=== PATIENT | female | born 1965 | race Caucasian/White ===

== ENCOUNTER 2017-11-04 04:47 | Inpatient (IN) | payer SELFPAY ==
[2017-11-04] MEDS ORDERED: METHYLPREDNISOLONE INJ 125 MG/2 ML SDV IV ONE (05:03)
[2017-11-04] MEDS ORDERED: IPRATROPIUM/ALBUTEROL 0.5-2.5 MG/3 ML AMPUL NEB ONE (05:03)
--- NOTE | 2017-11-04 05:03 | ER Document Report ---
Doctor's Note Notes: 11/04/17 05:02 I performed a quick triage evaluation the patient. Patient is a pleasant 52- year-old female presents with complaints of difficulty breathing and coughing. Symptoms have been ongoing for around 3 days. Her grandson was also sick with coughing illness and she feels that maybe she got this from him. No subjective fevers at home. She is a smoker. She says that she thinks she has COPD but has never been diagnosed and does not follow with a doctor does not take medications. No chest pain. No abdominal pain. No vomiting. She has a mild headache. She has recurrent cough that is mildly productive. On exam she does have very diminished air movement. She is mildly tachypneic. She is able to speak in full sentences. I have ordered breathing treatments, magnesium, Solu- Medrol, chest x-ray, and lab work. Patient is placed on athletic monitor.
[2017-11-04] MEDS: MAGNESIUM SULFATE/D5W 1 GM/100 ML RTUPB IV SCH ×2 (05:23→06:05)
[2017-11-04 05:37] LABS: VENOUS BLOOD BASE EXCESS 0.5 mmol/L; VENOUS BLOOD HCO3 24.1 mmol/L (20-32); VENOUS BLOOD PH 7.44 (7.30-7.42)
[2017-11-04 05:39] LABS: ABSOLUTE LYMPHOCYTES (AUTO) 0.6 10^3/uL (0.5-4.7); ABSOLUTE MONOCYTES (AUTO) 0.4 10^3/uL (0.1-1.4); ABSOLUTE NEUT (AUTO) 7.7 10^3/uL (1.7-8.2); BASOPHILS % (AUTO) 0.2 % (0-2); HEMATOCRIT 47.4 % (36.0-47.0); HEMOGLOBIN 16.2 g/dL (12.0-15.5); LYMPHOCYTES % (AUTO) 6.6 % (13-45); MEAN CORPUSCULAR HEMOGLOBIN 31.2 pg (27.0-33.4); MEAN CORPUSCULAR HGB CONC 34.2 g/dL (32.0-36.0); MEAN CORPUSCULAR VOLUME 91 fl (80-97); MONOCYTES % (AUTO) 4.5 % (3-13); PLATELET COUNT 340 10^3/uL (150-450); RED BLOOD COUNT 5.18 10^6/uL (3.72-5.28); RED CELL DISTRIBUTION WIDTH 12.8 % (11.5-14.0); SEGMENTED NEUTROPHILS % (AUTO) 88.7 % (42-78); TOTAL CELLS COUNTED % (AUTO) 100 %; WHITE BLOOD COUNT 8.7 10^3/uL (4.0-10.5)
[2017-11-04 05:54] LABS: ANION GAP 14 (5-19); BLOOD UREA NITROGEN 11 mg/dL (7-20); CALCIUM 9.3 mg/dL (8.4-10.2); CARBON DIOXIDE 26 mmol/L (22-30); CHLORIDE 99 mmol/L (98-107); GLUCOSE 152 mg/dL (75-110); POTASSIUM 4.6 mmol/L (3.6-5.0)
--- NOTE | 2017-11-04 06:30 | ER Document Report ---
ED General - General Chief Complaint: Breathing Difficulty Stated Complaint: TROUBLE BREATHING Time Seen by Provider: 11/04/17 04:55 Mode of Arrival: Ambulatory Information source: Patient Notes: 52-year-old smoker presents in respiratory distress of 2 day duration. Patient believes she has URI-like symptoms, she denies any fevers or chills, patient notes that she has had shortness of breath wheezing nonproductive cough. Patient is not on oxygen at home notes she has been unable to smoke for the past day due to the shortness of breath. Upon arrival patient noted to be tachycardic tachypneic and hypoxic TRAVEL OUTSIDE OF THE [place] IN LAST 30 DAYS: No - HPI Onset: Yesterday Onset/Duration: Worse Quality of pain: Achy Severity: Mild Pain Level: 1 Associated symptoms: Nonproductive cough, Shortness of breath Exacerbated by: Denies Relieved by: Denies Similar symptoms previously: No Recently seen / treated by doctor: No - Related Data Allergies/Adverse Reactions: amoxicillin Allergy (Verified 11/04/17 10:42) Past Medical History - Social History Smoking Status: Current Every Day Smoker Cigarette use (# per day): Yes Chew tobacco use (# tins/day): No Smoking Education Provided: Yes - Patient counselled regarding cessation for 4 minutes Frequency of alcohol use: None Family History: Reviewed & Not Pertinent Patient has suicidal ideation: No Patient has homicidal ideation: No Renal/ Medical History: Denies: Hx Peritoneal Dialysis Review of Systems - Review of Systems Notes: REVIEW OF SYSTEMS: CONSTITUTIONAL : Denies fever, chills, or sweats. Denies recent illness. EENT: Denies eye, ear, throat, or mouth pain or symptoms. Denies nasal or sinus congestion or discharge. Denies throat, tongue, or mouth swelling or difficulty swallowing. CARDIOVASCULAR: Denies chest pain. Denies palpitations or racing or irregular heart beat. Denies ankle edema. RESPIRATORY: Admits shortness of breath difficulty breathing wheezing GASTROINTESTINAL: Denies abdominal pain or distention. Denies nausea, vomiting , or diarrhea. Denies blood in vomitus, stools, or per rectum. Denies black, tarry stools. Denies constipation. GENITOURINARY: Denies difficulty urinating, painful urination, burning, frequency, blood in urine, or discharge. FEMALE GENITOURINARY: Denies vaginal bleeding, heavy or abnormal periods, irregular periods. Denies vaginal discharge or odor. MUSCULOSKELETAL: Denies back or neck pain or stiffness. Denies joint pain or swelling. SKIN: Denies rash, lesions or sores. HEMATOLOGIC : Denies easy bruising or bleeding. LYMPHATIC: Denies swollen, enlarged glands. NEUROLOGICAL: Denies confusion or altered mental status. Denies passing out or loss of consciousness. Denies dizziness or lightheadedness. Denies headache. Denies weakness or paralysis or loss of use of either side. Denies problems with gait or speech. Denies sensory loss, numbness, or tingling. Denies seizures. PSYCHIATRIC: Denies anxiety or stress. Denies depression, suicidal ideation, or homicidal ideation. ALL OTHER SYSTEMS REVIEWED AND NEGATIVE. PHYSICAL EXAMINATION: GENERAL: Well-appearing, well-nourished and in no acute distress. HEAD: Atraumatic, normocephalic. EYES: Pupils equal round and reactive to light, extraocular movements intact, conjunctiva are normal. ENT: Nares patent, oropharynx clear without exudates. Moist mucous membranes. NECK: Normal range of motion, supple without lymphadenopathy LUNGS: Moderate respiratory distress HEART: Tachycardic ABDOMEN: Soft, nontender, nondistended abdomen. No guarding, no rebound. No masses appreciated. Female : deferred Musculoskeletal: Normal range of motion, no pitting or edema. No cyanosis. NEUROLOGICAL: Cranial nerves grossly intact. Normal speech, normal gait. Normal sensory, motor exams PSYCH: Normal mood, normal affect. SKIN: Warm, Dry, normal turgor, no rashes or lesions noted. Dictation was performed using [employer] voice recognition software Physical Exam - Vital signs Vitals: Temp Pulse Resp BP Pulse Ox 98.5 F 133 H 24 H 167/107 H 89 L 11/04/17 04:52 11/04/17 04:52 11/04/17 04:52 11/04/17 04:52 11/04/17 04:52 Course - Re-evaluation Re-evalutation: 11/04/17 06:44 Patient was initially evaluated by Dr. Bright, noted to be in moderate respiratory distress, 2 duo nebs were given as well as magnesium and Solu-Medrol , her workup is most consistent with COPD exacerbation, she is currently on 2 L nasal cannula satting approximately 94%, she will be admitted to the hospitalist service, Dr. Adams has been called and awaiting callback 11/04/17 13:57 Patient was admitted to the hospitalist service, she is otherwise stable at this time - Vital Signs Vital signs: Temp Pulse Resp BP Pulse Ox 97.9 F 133 H 21 H 140/88 H 94 11/04/17 09:55 11/04/17 04:52 11/04/17 13:00 11/04/17 13:00 11/04/17 13:00 - Laboratory Result Diagrams: 11/04/17 05:05 11/04/17 05:05 Laboratory results interpreted by me: 11/04/17 11/04/17 11/04/17 05:05 05:05 05:05 Hgb 16.2 H Hct 47.4 H Seg Neutrophils % 88.7 H Lymphocytes % 6.6 L VBG pH 7.44 H Glucose 152 H - Diagnostic Test Radiology reviewed: Image reviewed, Reports reviewed - No acute abnormality Critical Care Note - Critical Care Note Total time excluding time spent on procedures (mins): 34 Comments: 34 minutes of critical care time spent in direct contact evaluating and reevaluating the patient, treating symptoms, reviewing labs and studies and speaking with family and consultants excluding any procedures Discharge - Discharge Clinical Impression: Hypoxemia, Tachycardia COPD (chronic obstructive pulmonary disease) Qualifiers: COPD type: chronic bronchitis Chronic bronchitis type: simple Qualified Code(s) : J41.0 - Simple chronic bronchitis Condition: Stable Disposition: ADMITTED INPATIENT Admitting Provider: Hospitalist Unit Admitted: [facility]
--- NOTE | 2017-11-04 06:31 | RADIOLOGY REPORT (SQ) ---
EXAM DESCRIPTION: CHEST SINGLE VIEW CLINICAL HISTORY: 52 years Female, cough, difficlty breathing COMPARISON: 11/02/17. NUMBER OF VIEWS/TECHNIQUE: 1/AP LIMITATIONS: None. FINDINGS: Normal lung volume, clear parenchyma, normal cardiac silhouette, and intact bony thorax. IMPRESSION: No acute cardiopulmonary findings.
--- NOTE | 2017-11-04 08:36 | RADIOLOGY REPORT (SQ) ---
EXAM DESCRIPTION: CTA CHEST COMPLETED DATE/TIME: 11/04/2017 8:24 am REASON FOR STUDY: sob, wheezing COMPARISON: None. TECHNIQUE: CT scan of the chest performed using helical scanning technique with dynamic intravenous contrast injection. Images reviewed with lung, soft tissue and bone windows. Reconstructed coronal and sagittal MPR images reviewed. Additional 3 dimensional post-processing performed to develop Maximal Intensity Projection images (VT P). All images stored on PACS. All CT scanners at this facility use dose modulation, iterative reconstruction, and/or weight based d osing when appropriate to reduce radiation dose to as low as reasonably achievable (ALARA). [facility]: Dose Right [facility]: CareDose [facility]: Dose Right [facility]: Teradose 4D [facility]: Unifyo CONTRAST TYPE AND DOSE: contrast/concentration: Isovue 370.00 mg/ml; Total Contrast Delivered: 81.0 ml; Total Saline Delivered: 100.2 ml Contrast bolus adequate for pulmonary arteries and aorta. RENAL FUNCTION: GFR > 60. RADIATION DOSE: CT Rad equipment meets quality standard of care and radiation dose reduction techniq ues were employed. CTDIvol: 16.5 - 17.5 mGy. DLP: 655 mGy-cm. . LIMITATIONS: Motion. FINDINGS: LUNGS AND PLEURA: Calcified granuloma in the middle lobe. Interlobular septal thickening and mild bronchiectasis in the middle lobe. 3 mm part solid nodule right lower lobe image 93. No ef fusions. AORTA AND GREAT VESSELS: No aneurysm. Contrast bolus not optimized for the aorta. HEART: No pericardial effusion. PULMONARY ARTERIES: No emboli visualized in the main pulmonary arteries or the segmental branches. HILAR AND MEDIASTINAL STRUCTURES: Enlarged subcarinal node 1.8 x 3.0 cm. Enlarged right hilar node 1 .9 x 1.3 cm. HARDWARE: None in the chest. UPPER ABDOMEN: 1.5 cm left adrenal nodule measuring about 20 HU. THYROID AND OTHER SOFT TISSUES: No masses. No adenopathy. BONES: No acute or significant finding. 3D MIPS: Confirm above findings. OTHER: No other significant finding. IMPRESSION: 1. No PE. 2. Chronic interstitial lung disease. Less than 4 mm nodule right lower lobe. 3. Mild mediastinal and hilar adenopathy. COMMENT: Quality ID # [id number]: Final reports with documentation of one or more dose reduction techniques (e.g., Automated exposure control, adjustment of the mA and/or kV according to patient size, use of iterative reconstruction technique) TECHNICAL DOCUMENTATION: JOB ID: [id number] [employer]- All Rights Reserved Reading location - IP/workstation name: [email or web address]
--- NOTE | 2017-11-04 08:59 | EKG REPORT ---
SEVERITY:- ABNORMAL ECG - SINUS TACHYCARDIA LIANNE, CONSIDER BIATRIAL ABNORMALITIES : Confirmed by: Neal Cox MD 04-Nov-2017 08:59:00
[2017-11-04] MEDS ORDERED: ONDANSETRON 4 MG TAB.RAPDIS PO PRN (10:14)
[2017-11-04] MEDS ORDERED: LEVALBUTEROL HCL NEB 1.25 MG/3 ML AMPUL NEB PRN (10:14)
[2017-11-04] MEDS ORDERED: DEXTROSE 50%-WATER 25 GM/50 ML DISP.SYRIN IV PRN ×2 (10:25)
[2017-11-04] MEDS ORDERED: GLUCAGON,HUMAN RECOMB 1 MG INJ IM PRN (10:25)
[2017-11-04] MEDS ORDERED: DEXTROSE 40% GEL 15 GM TUBE PO PRN ×2 (10:25)
[2017-11-04] MEDS ORDERED: NICOTINE 7 MG/24 HR PATCH.TD24 TD PRN (10:52)
--- NOTE | 2017-11-04 10:52 | PDOC H&P ---
History of Present Illness Admission Date/PCP: 11/04/17 08:11 Patient has no PCP Patient complains of: Shortness of breath History of Present Illness: KEITH JEAN BAPTISTE is a 52 year old female who reports that she does not have any medical problems brain aneurysm clipped. She states that she lives with 2 of her daughters and their families including young children. 1 of the children has been sick for a few days with a fever. Patient reports that she started feeling shortness of breath about 3 days ago. She has been coughing and the cough has been dry until today when she started to produce some dark yellow phlegm. She has not had any fevers. She does not use any medications including no oxygen at home. She has body aches. Because of the difficulty breathing and coughing she was feeling anxious and she came to the ER. She is being admitted to the hospitalist service with new diagnosis of COPD and COPD exacerbation with bronchitis. We will rule out the flu. Past Medical History Cardiac Medical History: Denies: None Pulmonary Medical History: Reports: Other - Tobacco use disorder since the age of 11 EENT Medical History: Denies: None Neurological Medical History: Reports: Other - Brain aneurysm with clipping, dissected vertebral artery in the Endocrine Medical History: Denies: None Renal/ Medical History: Denies: None Malignancy Medical History: Denies: None GI Medical History: Denies: None Musculoskeltal Medical History: Denies: None Skin Medical History: Denies: None Psychiatric Medical History: Reports: Tobacco Dependency Denies: Depression, General Anxiety Disorder, Substance Abuse Traumatic Medical History: Denies: None Hematology: Denies: None Infectious Medical History: Denies: None Past Surgical History Past Surgical History: Reports: Tubal Ligation, Vascular Surgery - Brain Aneurysm clipping Social History Information Source: Patient Lives with: Family Smoking Status: Current Every Day Smoker Cigarettes Packs Per Day: 4 Number of Years Smokin Last Time Smoked: Several days ago 2/2 illness, signif reduction in tobacco use Over 1 year Frequency of Alcohol Use: None Hx Recreational Drug Use: No Past Social History Note: 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 She [place] in the [place] area with her 2 daughters and their families including some grandchildren. She has 3 children of her own. She does not have a primary care doctor. Family History Parental Family History Reviewed: Yes - Father of an VT at the age of 46, mother is alive. Children Family History Reviewed: Yes - Her children are all healthy Sibling(s) Family History Reviewed.: Yes - Siblings are all healthy Medication/Allergy Home Medications: No Home Medications 11/04/17 Allergies/Adverse Reactions: amoxicillin Allergy (Verified 11/04/17 10:42) Review of Systems Constitutional: PRESENT: headache(s). ABSENT: chills, fever(s) Eyes: ABSENT: visual disturbances Ears: ABSENT: hearing changes Nose, Mouth, and Throat: PRESENT: headache(s). ABSENT: mouth pain, sore throat Cardiovascular: PRESENT: dyspnea on exertion. ABSENT: chest pain, edema, palpitations Respiratory: PRESENT: cough, dyspnea, sputum. ABSENT: hemoptysis Gastrointestinal: ABSENT: abdominal pain, constipation, diarrhea, nausea, vomiting Genitourinary: ABSENT: difficulty urinating, dysuria, hematuria Musculoskeletal: ABSENT: back pain, deformity, joint swelling, muscle weakness Integumentary: ABSENT: diaphoresis, erythema, lesions, wounds Neurological: ABSENT: confusion, dizziness, frequent falls, memory loss, syncope , weakness Psychiatric: ABSENT: anxiety, depression Endocrine: ABSENT: cold intolerance, heat intolerance, polydipsia, polyuria Hematologic/Lymphatic: ABSENT: easy bleeding, easy bruising Physical Exam Vital Signs: Temp Pulse Resp BP Pulse Ox 97.9 F 133 H 21 H 129/79 H 93 11/04/17 09:55 11/04/17 04:52 11/04/17 09:07 11/04/17 09:07 11/04/17 09:07 General appearance: PRESENT: no acute distress, cooperative Head exam: PRESENT: atraumatic, normocephalic Eye exam: PRESENT: conjunctiva pink, EOMI. ABSENT: periorbital swelling, scleral icterus Ear exam: PRESENT: normal external ear exam. ABSENT: bleeding, drainage Mouth exam: PRESENT: moist, neck supple, tongue midline Neck exam: PRESENT: lymphadenopathy Respiratory exam: PRESENT: prolonged expiratory phas, tachypnea, wheezes. ABSENT: accessory muscle use, chest wall tenderness, rales Cardiovascular exam: PRESENT: tachycardia. ABSENT: systolic murmur Pulses: PRESENT: normal radial pulses, normal dorsalis pedis pul GI/Abdominal exam: PRESENT: normal bowel sounds, soft. ABSENT: distended, guarding, tenderness Rectal exam: PRESENT: deferred Extremities exam: ABSENT: calf tenderness, clubbing, pedal edema Musculoskeletal exam: PRESENT: normal inspection Neurological exam: PRESENT: alert, awake, oriented to person, oriented to place , oriented to situation, CN II-XII grossly intact Psychiatric exam: PRESENT: appropriate affect. ABSENT: anxious Skin exam: PRESENT: dry, intact, warm. ABSENT: rash, skin tears Results Impressions: Chest X-Ray 11/04/17 05:01 IMPRESSION: No acute cardiopulmonary findings. Chest/Abdomen CTA 11/04/17 07:30 IMPRESSION: 1. No PE. 2. Chronic interstitial lung disease. Less than 4 mm nodule right lower lobe. 3. Mild mediastinal and hilar adenopathy. Assessment & Plan - Diagnosis (1) Acute respiratory failure with hypoxia Is this a current diagnosis for this admission?: Yes Plan: Patient has a many year tobacco history. She is being admitted with bronchitis and COPD exacerbation which are causing her hypoxemia. No PE seen on CT scan. (2) Bronchitis Is this a current diagnosis for this admission?: Yes Plan: Patient will start on doxycycline 100 mg p.o. every 12 hours. No evidence of pneumonia at this time. Will monitor clinical status to assure clinical improvement, white count is normal. She has no fever. She has had some myalgias has been around a sick child so rapid flu test has been ordered. (3) COPD (chronic obstructive pulmonary disease) Qualifiers: COPD type: chronic bronchitis Chronic bronchitis type: simple Qualified Code(s): J41.0 - Simple chronic bronchitis Plan: This is a new diagnosis. Patient has many years of tobacco abuse. I am starting her on Solu-Medrol 60 mg IV every 8, duo nebs scheduled every 8 hours and as needed bronchodilators. Doxycycline for bronchitis and inflammation.Nasal cannula oxygen to keep sats in the 90s. (4) Tobacco use disorder Is this a current diagnosis for this admission?: Yes Plan: Patient has smoked 1-2 packs of tobacco for many years, she started smoking when she was 11 years old. For about a year she has smoked 4 cigarettes a day. She is interested in quitting. I am placing a 7 mg NicoDerm patch and we will continue to encourage her towards tobacco cessation. Tobacco cessation counseling performed for 10 minutes. - Time Time Spent: 50 to 70 Minutes Smoking Cessation Education: 3 to 10 minutes Within: within 48 hours - Inpatient Certification Based on my medical assessment, after consideration of the patient's comorbidities, presenting symptoms, or acuity I expect that the services needed warrant INPATIENT care.: Yes I certify that my determination is in accordance with my understanding of Medicare's requirements for reasonable and necessary INPATIENT services [42 CFR 412.3e].: Yes Medical Necessity: Need Close Monitoring Due to Risk of Patient Decompensation, Risk of Complication if Not Cared For in Hospital
[2017-11-04] MEDS ORDERED: ENOXAPARIN SODIUM INJ 40 MG/0.4 ML DISP.SYRIN SUBCUT ONE (11:30)
[2017-11-04] MEDS ORDERED: DOXYCYCLINE HYCLATE 100 MG TABLET PO ONE (11:30)
[2017-11-04] MEDS: IPRATROPIUM/ALBUTEROL 0.5-2.5 MG/3 ML AMPUL NEB SCH ×3 (12:02→19:47)
[2017-11-04 12:40] LABS: A TYPE INFLUENZA AG NEGATIVE (NEGATIVE); B INFLUENZA AG NEGATIVE (NEGATIVE)
[2017-11-04] MEDS ORDERED: METHYLPREDNISOLONE INJ 125 MG/2 ML SDV IV SCH (14:00)
[2017-11-04] MEDS: METHYLPREDNISOLONE INJ 40 MG/1 ML SDV IV SCH ×2 (14:55→21:53)
[2017-11-04] MEDS: INSULIN LISPRO 100 UNIT/ML 3 ML VIAL SUBCUT PRN (17:19)
[2017-11-04] MEDS: BENZOCAINE/MENTHOL SORE THROAT LOZENGE BUCCAL PRN (17:19)
[2017-11-04] MEDS: DOXYCYCLINE HYCLATE 100 MG TABLET PO SCH (21:53)
[2017-11-05] MEDS: ACETAMINOPHEN 325 MG TABLET PO PRN ×2 (02:02→08:11)
[2017-11-05] MEDS: BENZOCAINE/MENTHOL SORE THROAT LOZENGE BUCCAL PRN (02:04)
[2017-11-05] MEDS: METHYLPREDNISOLONE INJ 40 MG/1 ML SDV IV SCH ×3 (06:04→21:19)
[2017-11-05] MEDS: IPRATROPIUM/ALBUTEROL 0.5-2.5 MG/3 ML AMPUL NEB SCH ×4 (07:35→19:29)
[2017-11-05 07:49] LABS: HEMATOCRIT 45.7 % (36.0-47.0); HEMOGLOBIN 15.3 g/dL (12.0-15.5); MEAN CORPUSCULAR HEMOGLOBIN 30.9 pg (27.0-33.4); MEAN CORPUSCULAR HGB CONC 33.4 g/dL (32.0-36.0); MEAN CORPUSCULAR VOLUME 93 fl (80-97); PLATELET COUNT 332 10^3/uL (150-450); RED BLOOD COUNT 4.94 10^6/uL (3.72-5.28); RED CELL DISTRIBUTION WIDTH 12.9 % (11.5-14.0); WHITE BLOOD COUNT 12.8 10^3/uL (4.0-10.5)
[2017-11-05 08:15] LABS: ANION GAP 12 (5-19); BLOOD UREA NITROGEN 19 mg/dL (7-20); CALCIUM 9.2 mg/dL (8.4-10.2); CARBON DIOXIDE 28 mmol/L (22-30); CHLORIDE 103 mmol/L (98-107); GLUCOSE 140 mg/dL (75-110); SODIUM 143.1 mmol/L (137-145)
[2017-11-05] MEDS: DOXYCYCLINE HYCLATE 100 MG TABLET PO SCH ×2 (09:16→21:19)
[2017-11-05] MEDS: ENOXAPARIN SODIUM INJ 40 MG/0.4 ML DISP.SYRIN SUBCUT SCH (09:17)
--- NOTE | 2017-11-05 16:22 | PDOC PROGRESS REPORT ---
Subjective Progress Note for:: 11/05/17 Subjective:: Patient states she is feeling better Breathing is easier She still has a cough that is nonproductive under a lot of wheezing She has no chest pains Reason For Visit: NEW DIAGNOSIS OF COPD AND WITH EXACERBATION ACUTE Physical Exam Vital Signs: Temp Pulse Resp BP Pulse Ox 97.4 F 108 H 20 131/78 H 93 11/05/17 14:40 11/05/17 14:40 11/05/17 14:40 11/05/17 14:40 11/05/17 14:40 Intake & Output 11/04/17 11/05/17 11/06/17 00:59 00:59 00:59 Intake Total 453 Output Total 600 Balance -147 Weight 64.8 kg 86.4 kg General appearance: PRESENT: no acute distress, cooperative Head exam: PRESENT: atraumatic, normocephalic Eye exam: PRESENT: conjunctiva pink, EOMI. Ear exam: PRESENT: normal external ear exam. Mouth exam: PRESENT: moist, neck supple, tongue midline Neck exam: PRESENT: lymphadenopathy Respiratory exam: PRESENT: wheezes. ABSENT: accessory muscle use, chest wall tenderness, rales Cardiovascular exam: PRESENT: tachycardia. ABSENT: systolic murmur Pulses: PRESENT: normal radial pulses, normal dorsalis pedis pul GI/Abdominal exam: PRESENT: normal bowel sounds, soft. Extremities exam: ABSENT: calf tenderness, clubbing, pedal edema Musculoskeletal exam: PRESENT: normal inspection Neurological exam: PRESENT: alert, awake, oriented to person, oriented to place , oriented to situation, CN II-XII grossly intact Psychiatric exam: PRESENT: appropriate affect. ABSENT: anxious Skin exam: PRESENT: dry, intact, warm. ABSENT: rash, skin tears Results Laboratory Results: 11/05/17 07:23 11/05/17 07:23 11/05/17 11/05/17 07:23 07:23 WBC 12.8 H RBC 4.94 Hgb 15.3 Hct 45.7 MCV 93 MCH 30.9 MCHC 33.4 RDW 12.9 Plt Count 332 Sodium 143.1 Potassium 5.0 Chloride 103 Carbon Dioxide 28 Anion Gap 12 BUN 19 Creatinine 0.64 Est GFR ( Amer) > 60 Est GFR (Non-Af Amer) > 60 Glucose 140 H Calcium 9.2 Magnesium 2.2 Impressions: Chest X-Ray 11/04/17 05:01 IMPRESSION: No acute cardiopulmonary findings. Chest/Abdomen CTA 11/04/17 07:30 IMPRESSION: 1. No PE. 2. Chronic interstitial lung disease. Less than 4 mm nodule right lower lobe. 3. Mild mediastinal and hilar adenopathy. Assessment & Plan - Time Time Spent with patient: (1) Acute respiratory failure with hypoxia Is this a current diagnosis for this admission?: Yes Plan: Patient has a many year tobacco history. She is being admitted with bronchitis and COPD exacerbation which are causing her hypoxemia. No PE seen on CT scan. Continue O2 supplementation (2) Bronchitis Is this a current diagnosis for this admission?: Yes Plan: Patient will start on doxycycline 100 mg p.o. every 12 hours. No evidence of pneumonia at this time. Will monitor clinical status to assure clinical improvement, white count is normal. She has no fever. She has had some myalgias has been around a sick child so rapid flu test has been ordered. Continue doxycycline (3) COPD (chronic obstructive pulmonary disease) Qualifiers: COPD type: chronic bronchitis Chronic bronchitis type: simple Qualified Code(s): J41.0 - Simple chronic bronchitis Plan: This is a new diagnosis. Patient has many years of tobacco abuse. I am starting her on Solu-Medrol 60 mg IV every 8, duo nebs scheduled every 8 hours and as needed bronchodilators. Doxycycline for bronchitis and inflammation.Nasal cannula oxygen to keep sats in the 90s. (4) Tobacco use disorder Is this a current diagnosis for this admission?: Yes Plan: Patient has smoked 1-2 packs of tobacco for many years, she started smoking when she was 11 years old. For about a year she has smoked 4 cigarettes a day. She is interested in quitting. I am placing a 7 mg NicoDerm patch and we will continue to encourage her towards tobacco cessation. Tobacco cessation counseling performed for 10 minutes. Patient's condition overall is improving
[2017-11-05] MEDS: INSULIN LISPRO 100 UNIT/ML 3 ML VIAL SUBCUT PRN (17:55)
[2017-11-06] MEDS: METHYLPREDNISOLONE INJ 40 MG/1 ML SDV IV SCH ×3 (05:56→21:15)
[2017-11-06] MEDS: IPRATROPIUM/ALBUTEROL 0.5-2.5 MG/3 ML AMPUL NEB SCH ×4 (08:03→20:11)
[2017-11-06] MEDS: BENZOCAINE/MENTHOL SORE THROAT LOZENGE BUCCAL PRN ×4 (08:57→21:37)
[2017-11-06] MEDS: ENOXAPARIN SODIUM INJ 40 MG/0.4 ML DISP.SYRIN SUBCUT SCH (08:57)
[2017-11-06] MEDS: DOXYCYCLINE HYCLATE 100 MG TABLET PO SCH ×2 (08:57→21:15)
[2017-11-06] MEDS: ACETAMINOPHEN 325 MG TABLET PO PRN (13:02)
--- NOTE | 2017-11-06 19:56 | PDOC PROGRESS REPORT ---
Subjective Progress Note for:: 11/06/17 Subjective:: Seen and examined this am. Here with acute COPD exacerbation. Reports some improvement of her breathing but feels tired on ambulation. No fevers, nor chills. She reports the the breathing Rx helps a lot. Reason For Visit: NEW DIAGNOSIS OF COPD AND WITH EXACERBATION ACUTE Physical Exam Vital Signs: Temp Pulse Resp BP Pulse Ox 97.6 F 83 18 124/81 91 L 11/06/17 15:24 11/06/17 17:28 11/06/17 17:28 11/06/17 15:24 11/06/17 17:28 Intake & Output 11/05/17 11/06/17 11/07/17 06:59 06:59 06:59 Intake Total 453 1835 Output Total 600 900 Balance -147 935 Weight 86.4 kg 86.4 kg General appearance: PRESENT: no acute distress, cooperative Head exam: PRESENT: atraumatic, normocephalic Eye exam: PRESENT: EOMI Mouth exam: PRESENT: moist Neck exam: PRESENT: full ROM Respiratory exam: PRESENT: decreased breath sounds, wheezes. ABSENT: accessory muscle use Cardiovascular exam: PRESENT: RRR GI/Abdominal exam: PRESENT: normal bowel sounds, soft Rectal exam: PRESENT: deferred Extremities exam: PRESENT: full ROM Musculoskeletal exam: PRESENT: ambulatory, full ROM Neurological exam: PRESENT: alert, oriented to person, oriented to time, oriented to situation, reflexes normal Psychiatric exam: PRESENT: appropriate affect Skin exam: PRESENT: dry, intact Results Laboratory Results: 11/05/17 07:23 11/05/17 07:23 11/04/17 15:10 Sputum Gram Stain - Final 11/04/17 15:10 Sputum Sputum Culture - Final NORMAL CLAUDIA Impressions: Chest X-Ray 11/04/17 05:01 IMPRESSION: No acute cardiopulmonary findings. Chest/Abdomen CTA 11/04/17 07:30 IMPRESSION: 1. No PE. 2. Chronic interstitial lung disease. Less than 4 mm nodule right lower lobe. 3. Mild mediastinal and hilar adenopathy. Assessment & Plan - Diagnosis (1) Acute respiratory failure with hypoxia Is this a current diagnosis for this admission?: Yes Plan: Likely due to acute COPD. Continue bronchodilator and oxygen therapy. Continue Solu-Medrol and on doxycycline. Add flutter valve (2) Bronchitis Is this a current diagnosis for this admission?: Yes Plan: Continue steroids and antibiotics. (3) COPD (chronic obstructive pulmonary disease) Qualifiers: COPD type: chronic bronchitis Chronic bronchitis type: simple Qualified Code(s): J41.0 - Simple chronic bronchitis Is this a current diagnosis for this admission?: Yes Plan: Continue steroids and antibiotics. Smoking cessation adviced. (4) Tobacco use disorder Is this a current diagnosis for this admission?: Yes Plan: Smoking cessation advised. Nicotine replacement (5) DVT prophylaxis Is this a current diagnosis for this admission?: Yes Plan: On HSQ - Time Time Spent with patient: 15-24 minutes
[2017-11-06] MEDS: HEPARIN SOD (PORCINE) 5,000 UNIT/ML 1 ML SYRINGE SUBCUT SCH (21:15)
[2017-11-07] MEDS: METHYLPREDNISOLONE INJ 40 MG/1 ML SDV IV SCH ×3 (06:24→21:31)
[2017-11-07] MEDS: IPRATROPIUM/ALBUTEROL 0.5-2.5 MG/3 ML AMPUL NEB SCH ×4 (07:42→19:36)
[2017-11-07] MEDS: HEPARIN SOD (PORCINE) 5,000 UNIT/ML 1 ML SYRINGE SUBCUT SCH ×2 (10:34→21:06)
[2017-11-07] MEDS: DOXYCYCLINE HYCLATE 100 MG TABLET PO SCH ×2 (10:41→21:31)
[2017-11-07] MEDS: BENZOCAINE/MENTHOL SORE THROAT LOZENGE BUCCAL PRN (15:05)
--- NOTE | 2017-11-07 19:57 | PDOC PROGRESS REPORT ---
Subjective Progress Note for:: 11/07/17 Subjective:: KEITH JEAN BAPTISTE is a 52 year old female smoker who presented with shortness of breath and a new diagnosis of COPD. The patient seen this morning on rounds. She is sitting up in bed, awake and oriented, participatory in care. She requires supplemental oxygen to maintain Sp02>88%. Her only complaint is that she becomes slightly short of breath when ambulating to the restroom. Reason For Visit: NEW DIAGNOSIS OF COPD AND WITH EXACERBATION ACUTE Physical Exam Vital Signs: Temp Pulse Resp BP Pulse Ox 98.1 F 106 H 16 141/93 H 92 11/07/17 16:18 11/07/17 16:18 11/07/17 16:18 11/07/17 16:18 11/07/17 16:18 Intake & Output 11/06/17 11/07/17 11/08/17 06:59 06:59 06:59 Intake Total 9528 584 6983 Output Total 900 1000 2000 Balance 935 -147 -70 Weight 86.4 kg 86.4 kg General appearance: PRESENT: no acute distress Eye exam: PRESENT: conjunctiva pink Mouth exam: PRESENT: moist Neck exam: PRESENT: full ROM Respiratory exam: PRESENT: wheezes - bilateral bases - very mild wheezing heard at end exhalation Cardiovascular exam: PRESENT: +S1, +S2 Pulses: PRESENT: normal radial pulses, normal dorsalis pedis pul Vascular exam: PRESENT: normal capillary refill GI/Abdominal exam: PRESENT: normal bowel sounds, soft Rectal exam: PRESENT: deferred Neurological exam: PRESENT: alert, altered, awake, oriented to person, oriented to place, oriented to time, oriented to situation Results Laboratory Results: 11/05/17 07:23 11/05/17 07:23 Impressions: Chest X-Ray 11/04/17 05:01 IMPRESSION: No acute cardiopulmonary findings. Chest/Abdomen CTA 11/04/17 07:30 IMPRESSION: 1. No PE. 2. Chronic interstitial lung disease. Less than 4 mm nodule right lower lobe. 3. Mild mediastinal and hilar adenopathy. Assessment & Plan - Diagnosis (1) Acute respiratory failure with hypoxia Is this a current diagnosis for this admission?: Yes Plan: Acute on chronic COPD exacerbation. Continue bronchodilator and supplemental oxygen as needed to [id number]>88%. Continue Solu-Medrol, will start weaning tomorrow. Continue doxycycline. (2) COPD (chronic obstructive pulmonary disease) Qualifiers: COPD type: chronic bronchitis Chronic bronchitis type: simple Qualified Code(s): J41.0 - Simple chronic bronchitis Is this a current diagnosis for this admission?: Yes Plan: Continue solumedrol and doxycycline. Start steroid wean tomorrow. Smoking cessation is advised, patient is receptive to teaching (3) Bronchitis Is this a current diagnosis for this admission?: Yes Plan: As above (4) DVT prophylaxis Is this a current diagnosis for this admission?: Yes Plan: Attending sq heparin (5) Tobacco use disorder Is this a current diagnosis for this admission?: Yes Plan: The patient states she wants to quit smoking. Offered a nicotine patch upon arrival to the hospital but declined. - Time Time Spent with patient: 15-24 minutes Medications reviewed and adjusted accordingly: Yes Anticipated discharge: Home Within: within 24 hours - Inpatient Certification Based on my medical assessment, after consideration of the patient's comorbidities, presenting symptoms, or acuity I expect that the services needed warrant INPATIENT care.: Yes I certify that my determination is in accordance with my understanding of Medicare's requirements for reasonable and necessary INPATIENT services [42 CFR 412.3e].: Yes Medical Necessity: Risk of Complication if Not Cared For in Hospital - Plan Summary Plan Summary: Ultimately, the plan is to discharge the patient home with follow-up at the [facility]. The patient states she has no source of income and does not have health insurance. Discharge planning has been consulted because the patient will require life-saving respiratory treatments
[2017-11-08] MEDS: BENZOCAINE/MENTHOL SORE THROAT LOZENGE BUCCAL PRN (03:57)
[2017-11-08] MEDS: METHYLPREDNISOLONE INJ 40 MG/1 ML SDV IV SCH (05:54)
[2017-11-08] MEDS: DOXYCYCLINE HYCLATE 100 MG TABLET PO SCH (09:08)
[2017-11-08] MEDS: HEPARIN SOD (PORCINE) 5,000 UNIT/ML 1 ML SYRINGE SUBCUT SCH (09:09)
[2017-11-08] MEDS: IPRATROPIUM/ALBUTEROL 0.5-2.5 MG/3 ML AMPUL NEB SCH ×3 (09:26→15:25)
[2017-11-08] MEDS ORDERED: ALBUTEROL SULFATE HFA (90 MCG/PUFF) 200 PUFF/8.5 GM MDI IH PRN (11:28)
[2017-11-08] MEDS ORDERED: METHYLPREDNISOLONE INJ 40 MG/1 ML SDV IV SCH (14:00)
[2017-11-08] MEDS: ACETAMINOPHEN 325 MG TABLET PO PRN (14:01)
[2017-11-08 15:20] VITALS: BP 136/85
--- NOTE | 2017-11-30 19:09 | PDOC DISCHARGE SUMMARY ---
General - Admit/Disc Date/PCP Admission Date/Primary Care Provider: 11/04/17 08:11 Discharge Date: 11/08/17 - Discharge Diagnosis (1) Acute respiratory failure with hypoxia Is this a current diagnosis for this admission?: Yes Summary: secondary to COPD and acute bronchitis. PO doxycycline. Initially on supplemental oxygen via nasal cannula but was able to wean. Received bronchodilators and Solumedrol while inpatient. Patient discharged home with an albuterol inhaler, PO prednisone taper, and (2) COPD (chronic obstructive pulmonary disease) Is this a current diagnosis for this admission?: Yes Summary: Patient receptive to smoking cessation education. Initially treated with solumedrol, nebulizers, and doxycycline. Patient was discharged with an albuterol inhaler and prednisone taper. (3) Bronchitis Is this a current diagnosis for this admission?: Yes Summary: Treated for 4 days with doxycycline. Patient remained afebrile, no leukocytosis , and no evidence of PNA. She was non-toxic appearing, therefore, the patient was not sent home on TMP-SMX for her bronchitis because it was on the $4 list at [facility], doxycycline is not. (4) DVT prophylaxis Is this a current diagnosis for this admission?: Yes Summary: Heparin SQ while inpatient. (5) Tobacco use disorder Is this a current diagnosis for this admission?: Yes Summary: 50 pack year history. Started on nicotine patch while inpatient. Counseled on the importance of smoking cessation - Additional Information Resuscitation Status: Full Code Discharge Diet: As Tolerated Discharge Activity: Activity As Tolerated Prescriptions: Albuterol Sulfate [Proair HFA] 1 - 2 puff IH Q4 PRN #1 inhaler PRN Reason: Albuterol Sulfate [Proair HFA Inhalation Aerosol 8.5 gm MDI] 2 puff IH Q6HP PRN #1 hfa.[email or web address] PRN Reason: Sulfamethoxazole/Trimethoprim [Sulfamethoxazole-Tmp Ds Tablet] 1 each PO BID 6 Days #12 tablet Home Medications: Albuterol Sulfate [Proair HFA Inhalation Aerosol 8.5 gm MDI] 2 puff IH Q6HP PRN #1 hfa.aer.ad 11/08/17 Albuterol Sulfate [Proair HFA] 1 - 2 puff IH Q4 PRN #1 inhaler 11/08/17 Sulfamethoxazole/Trimethoprim [Sulfamethoxazole-Tmp Ds Tablet] 1 each PO BID 6 Days #12 tablet 11/08/17 History of Present Illness Patient complains of: cough and SOB History of Present Illness: KEITH JEAN BAPTISTE is a 52 year old female who presented to [facility] for cough, SOB, and anxiety. She states she lives with her family and one of the children in the house has been sick. For 3 days prior to arrival she experienced a dry cough, she decided to come to the ED when her cough became productive and she begn experiencing SOB (with associated anxiety). The patient was given Solumedrol, albuterol neb tx, and Magnesium IV in the ED. Her chest xray was benign. Admitted to the hospitalist service with a new dx of COPD and acute bronchitis. Patient states her only PMH is a brain aneurysm and subsequent clipping. She has a 50 pack year smoking history. Hospital Course Hospital Course: as above Physical Exam Vital Signs: Temp Pulse Resp BP Pulse Ox 97.5 F 87 16 136/85 H 92 11/08/17 15:05 11/08/17 15:25 11/08/17 15:25 11/08/17 15:05 11/08/17 15:05 General appearance: PRESENT: no acute distress, well-developed, well-nourished Head exam: PRESENT: atraumatic, normocephalic Eye exam: PRESENT: conjunctiva pink, EOMI, PERRLA. ABSENT: scleral icterus Ear exam: PRESENT: normal external ear exam Mouth exam: PRESENT: moist, tongue midline Neck exam: ABSENT: carotid bruit, JVD, lymphadenopathy, thyromegaly Respiratory exam: PRESENT: clear to auscultation agnes. ABSENT: rales, rhonchi, wheezes Cardiovascular exam: PRESENT: RRR. ABSENT: diastolic murmur, rubs, systolic murmur Pulses: PRESENT: normal dorsalis pedis pul Vascular exam: PRESENT: normal capillary refill GI/Abdominal exam: PRESENT: normal bowel sounds, soft. ABSENT: distended, guarding, mass, organolmegaly, rebound, tenderness Rectal exam: PRESENT: deferred Extremities exam: PRESENT: full ROM. ABSENT: calf tenderness, clubbing, pedal edema Neurological exam: PRESENT: alert, awake, oriented to person, oriented to place , oriented to time, oriented to situation, CN II-XII grossly intact. ABSENT: motor sensory deficit Psychiatric exam: PRESENT: appropriate affect, normal mood. ABSENT: homicidal ideation, suicidal ideation Skin exam: PRESENT: dry, intact, warm. ABSENT: cyanosis, rash Results Laboratory Results: 11/05/17 07:23 11/05/17 07:23 Impressions: Chest X-Ray 11/04/17 05:01 IMPRESSION: No acute cardiopulmonary findings. Chest/Abdomen CTA 11/04/17 07:30 IMPRESSION: 1. No PE. 2. Chronic interstitial lung disease. Less than 4 mm nodule right lower lobe. 3. Mild mediastinal and hilar adenopathy. Status: Imported from PACS Qualifiers - * [place] BEING DISCHARGED WITH ANY OF THE FOLLOWING DIAGNOSIS?: No Plan Discharge Plan: Discharge home with prescriptions for albuterol inhaler and TMP-SMX. Smoking cessation encouraged. Instructed to follow up with PMD at [facility]. Time Spent: Less than 30 Minutes
== END 2017-11-08 16:45 | disposition home or self-care (01) | DRG 190 ==
LOC: ER 04:47 → EH 08:11 → 4W 17:35
PROVIDERS: ADMIT Internal Medicine; ATTEND Internal Medicine
PROC: 3E0F73Z Introduction of Anti-inflammatory into Respiratory Tract, Via Natural or Artificial Opening (ICD-10-PCS; principal; 2017-11-04)
DX: J44.1 Chronic obstructive pulmonary disease with (acute) exacerbation (principal); J96.01 Acute respiratory failure with hypoxia; R91.1 Solitary pulmonary nodule; R59.9 Enlarged lymph nodes, unspecified; J41.0 Simple chronic bronchitis; F17.210 Nicotine dependence, cigarettes, uncomplicated; J20.9 Acute bronchitis, unspecified; J44.0 Chronic obstructive pulmonary disease with (acute) lower respiratory infection; Z79.899 Other long term (current) drug therapy; Z88.0 Allergy status to penicillin; Z82.49 Family history of ischemic heart disease and other diseases of the circulatory system
CPT/HCPCS: 36415; 71045; 71275; 80048; 82803; 82962; 83036; 83735; 85025; 85027; 87070; 87205; 87804; 93005; 93010; 94640; 94667; 96365; 96366; 96375; 99285; J1644; J1650; J1815; J2920; J2930; J3475; J3490; J7620; S0119